=== PATIENT | male | born 1970 | race Caucasian/White ===

== ENCOUNTER → 2020-07-14 17:03 | Outpatient (CLI) | payer OTHER, SELFPAY ==
--- NOTE | 2020-07-14 | DI.MRI.S_ITS ---
PROCEDURE: MR ELBOW RT WO CON INDICATIONS: Other bursitis of elbow, right elbow TECHNIQUE: Noncontrast coronal proton density fast spin echo and T2 fast spin echo with fat saturation, axial and sagittal T1 spin echo and T2 fast spin echo with fat saturation through the elbow. COMPARISON: None. FINDINGS: Image quality: There is mild motion artifact. Lateral structures: The lateral ulnar collateral ligament and radial collateral ligament both appear intact. The overlying common extensor tendon also appears normal. Medial structures: The ulnar collateral ligament appears intact. The overlying common flexor tendon appears normal. The ulnar nerve appears normal in size and signal within the cubital tunnel. Anterior structures: The biceps and brachialis tendons both appear intact as they insert onto the proximal radius and ulna, respectively. No bicipitoradial bursal fluid. The median and radial neurovascular bundles appear normal; no focal muscle atrophy to suggest nerve impingement. Posterior structures: The triceps tendon demonstrates tendinopathy with moderate interstitial partial tearing distally. There is associated peritendinous edema and fluid distally along the triceps tendon. Soft tissue edema is demonstrated over the olecranon process with an associated small loculated fluid collection measuring approximately 0.7 x 0.4 x 1.5 cm consistent with bursitis. Bone and cartilage: There is bone marrow edema in the olecranon centered at the triceps tendon insertion. No fractures. No joint effusions. IMPRESSION: 1. Soft tissue edema overlying the olecranon with associated loculated fluid collection consistent with bursitis. 2. Peritendinitis and moderate interstitial partial partial tearing of the distal triceps tendon. 3. Bone marrow edema in the olecranon likely represents reactive changes secondary to bursitis. The differential includes bone contusions or infection although these are considered less likely. Recommend correlation with clinical history and exam. Dictated by: Chris Avila M.D. on 07/15/2020 at 12:06 Approved by: Chris Avila M.D. on 07/15/2020 at 12:48
== END ==
PROVIDERS: Family Provider Family Medicine; PCP Student in an Organized Health Care Education/Training Program; Referring Provider Student in an Organized Health Care Education/Training Program; Visit Provider Student in an Organized Health Care Education/Training Program
DX: M70.31 Other bursitis of elbow, right elbow (principal); M77.9 Enthesopathy, unspecified
CPT/HCPCS: 73221

== ENCOUNTER → 2021-06-03 08:05 | Outpatient (CLI) | payer OTHER, SELFPAY ==
[2021-06-03 11:35] LABS: COVID19 -Nasal RAPID Negative (Negative)
== END ==
PROVIDERS: PCP Student in an Organized Health Care Education/Training Program; Visit Provider Nurse Practitioner
DX: Z20.822 Contact with and (suspected) exposure to COVID-19 (principal); Z01.812 Encounter for preprocedural laboratory examination
CPT/HCPCS: 87635

== ENCOUNTER 2021-06-05 11:57 | Day surgery (SDC) | payer OTHER, SELFPAY ==
--- NOTE | 2021-06-05 12:14 | PM.HP.1 ---
History of Present Illness History of Present Illness Date Patient Seen: 06/05/21 Chief complaint: SDC Narrative: 51 Years Old Male seen today for consideration of a screening colonoscopy. There have been no lower GI symptoms suggesting disease such as change in bowel habits, bleeding, abdominal pain or anemia. There's been no family history of colon cancer or colon polyps. Overall health issues have been stable, including no major cardiac events for at least 6 weeks. Past Medical History: HYPERLIPIDEMIA MIGRAINE DEPRESSION, MAJOR, RECURRENT, managed by Dr. 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 - [employer] Education: Associates Degree Patient History Family & Social History Tobacco & Substance use: Smoking Status Smoker, status unknown Meds Home Medications and Allergies Home Medications Medication Instructions Recorded Confirmed Type buspirone 10 mg tablet 10 mg PO BID #60 tab 02/18/17 06/05/21 Rx erenumab-aooe 70 mg/mL 70 mg SUBCUT QMONTH #2 ml 02/19/19 06/05/21 Rx subcutaneous auto-injector (Aimovig Autoinjector 140 mg/2 Pack () dextroamphetamine-amphetamine 10 20 mg PO SEE INSTRUCTIONS tab 03/13/19 06/05/21 History mg tablet dextroamphetamine-amphetamine 10 30 mg PO SEE INSTRUCTIONS tab 03/13/19 06/05/21 History mg tablet bupropion HCl 150 mg tablet,12 hr 150 mg PO DAILY 09/11/19 06/05/21 History sustained-release (Wellbutrin SR) nadolol 20 mg tablet 20 mg PO DAILY 06/05/21 06/05/21 History Allergies Allergy/AdvReac Type Severity Reaction Status Date / Time Penicillins [PENICILLINS] Allergy Severe HIVES, Verified 06/05/21 12:13 TROUBLE BREATHING Review of Systems Review of Systems Narrative: See HPI. Exam Narrative Exam Narrative: GENERAL: Alert and oriented, appearing stated age and in no acute distress. HEENT: Head normocephalic/atraumatic. LUNGS: Clear to ausculation bilaterally, no wheezes, rhonchi or rales. CV: Normal S1 and S2 with regular rate and rhythm, no audible murmurs, rubs or gallops. ABDOMEN: Soft, non-tender, non-distended, no organomegaly. Positive bowel sounds. EXTREMITIES: No clubbing, cyanosis, or edema. NEURO: Cranial nerves II through XII grossly intact, no focal deficits. PSYCH: Alert and oriented x 3. SKIN: No concerning lesions. Assessment & Plan Assessment & Plan narrative: 1. Screening for colon cancer Plan for colonoscopy. The nature and character of the procedure as well as anticipated results were discussed. The possibility of not completing the procedure was also discussed. Possible complications including aspiration pneumonia, bleeding, perforation and reaction to medications either for sedation or preparation and missed lesions were discussed. Questions were answered and proceeding to the colonoscopy was elected. Informed consent signed. I sincerely appreciate the referral allowing me to participate in this patient's care. Please contact me with any questions or concerns.
--- NOTE | 2021-06-05 12:17 | PM.OP.ENDO ---
Operative Date/Time/Diagnoses Date of procedure: 06/05/21 Procedure Notes SCOAP/Timeout: 1:08 p.m. Procedure in detail: ENDOSCOPIST: Lizz Doe MD Sedation RN: Giovanni Osman RN Sedation start time: 3:09 p.m. Sedation end time: 1:40 p.m. PROCEDURE: Colonoscopy INDICATIONS: 1. Screening for colon cancer MEDICATION: Levsin 0.125 mg sublingual, incremental doses of Versed and fentanyl until appropriate level sedation achieved. ASA CLASS: 2 CECAL WITHDRAWAL TIME: 6 minutes COMPLICATIONS: None. EXTENT OF PROCEDURE: Cecum. QUALITY OF PREP: Good with portions of liquid stool. PROCEDURE: Prior to insertion of the colonoscope, a digital rectal examination was accomplished with circumferential palpation of the distal rectal mucosa without significant findings being noted. The high-definition colonoscope was passed into the rectum in the usual fashion and advanced over to the cecum without difficulty. The ileocecal valve, appendiceal stoma, and medial wall all could be inspected and no abnormalities were seen. ASCENDING COLON: As the colonoscope was withdrawn, care was taken to expose and inspect the haustral folds and no abnormalities were seen. HEPATIC FLEXURE: Normal, no polyps, diverticula or other abnormalities. TRANSVERSE COLON: Normal, no polyps, diverticula or other abnormalities. DESCENDING COLON: Normal, no polyps, diverticula or other abnormalities. SIGMOID COLON: Normal, no polyps, diverticula or other abnormalities. RECTUM: Normal. J maneuver was produced. There was no significant perianal disease. The J maneuver was broken. The remainder of the rectum was inspected and there was no external hemorrhoid disease. The scope was withdrawn. IMPRESSION: 1. Normal colonoscopy PLAN: 1. Repeat colonoscopy in 10 years. The possibility of a missed lesion including a malignancy has been discussed with the patient previously. Potential alarm symptoms have been discussed and should be reported immediately.
[2021-06-05 12:22] VITALS: BP 128/94; PULSE 74; RESP 16; TEMP 36.4; O2SAT 98; BMI 28.3
[2021-06-05] MEDS: LACTATED RINGERS 1,000 ML 200 ML IV (12:37)
[2021-06-05] MEDS: HYOSCYAMINE 0.125 MG TABLET PO (12:37)
[2021-06-05] MEDS: MIDAZOLAM 5 MG/5 ML VIAL IV (13:45)
[2021-06-05] MEDS: fentaNYL 250 MCG/5 ML INJ IV (13:45)
[2021-06-05 13:47] VITALS: BP 126/89; PULSE 72; RESP 14; TEMP 36.2; O2SAT 95
[2021-06-05 13:52] VITALS: BP 141/83; PULSE 63; RESP 16; O2SAT 98
[2021-06-05 13:57] VITALS: BP 114/80; PULSE 69; RESP 16; O2SAT 97
== END 2021-06-05 14:16 | disposition home or self-care (01) ==
PROVIDERS: PCP Student in an Organized Health Care Education/Training Program; Referring Provider Student in an Organized Health Care Education/Training Program; Visit Provider Student in an Organized Health Care Education/Training Program
PROC: 0DJD8ZZ Inspection of Lower Intestinal Tract, Via Natural or Artificial Opening Endoscopic (ICD-10-PCS; CPT 45378; principal; 2021-06-05 13:00)
DX: Z12.11 Encounter for screening for malignant neoplasm of colon (principal)
CPT/HCPCS: 45378; J2250; J3010

== ENCOUNTER → 2022-06-14 09:20 | Outpatient (CLI) | payer OTHER, SELFPAY ==
--- NOTE | 2022-06-14 09:23 | DI.RAD.S_ITS ---
PROCEDURE: XR HIP W PEL IF DONE LT 2V INDICATIONS: LOW BACK PAIN, LEFT HIP PAIN TECHNIQUE: AP pelvis with lateral view(s) of the left hip(s). COMPARISON: None. FINDINGS: Bones: No fractures or dislocations. There are minimal degenerative changes with a small osteophyte, no other significant abnormality. Pelvic ring appears intact. No suspicious bony lesions. Soft tissues: The visualized bowel gas pattern is normal. No suspicious soft tissue calcifications. IMPRESSION: Minimal degenerative changes, otherwise normal left hip. Dictated by: Ulysses Wood M.D. on 06/14/2022 at 11:09 Approved by: Ulysses Wood M.D. on 06/14/2022 at 11:10
--- NOTE | 2022-06-14 09:23 | DI.RAD.S_ITS ---
PROCEDURE: XR LUMBAR SPINE 2-3V INDICATIONS: LOW BACK PAIN, LEFT HIP PAIN TECHNIQUE: 3 views of the lumbar spine were acquired. COMPARISON: None. FINDINGS: Bones: 5 [id number] vertebrae are present. There is normal bony alignment. No vertebral body compression fractures. No suspicious bony lesions. There is facet arthrosis in the lower lumbar spine. Soft tissues: Overlying bowel gas pattern is normal. No suspicious soft tissue calcifications. IMPRESSION: 1. No acute abnormality of the lumbar spine. 2. No disc space narrowing. 3. Facet arthrosis in the lower lumbar spine. Dictated by: Ulysses Wood M.D. on 06/14/2022 at 11:06 Approved by: Ulysses Wood M.D. on 06/14/2022 at 11:07
== END ==
PROVIDERS: PCP Student in an Organized Health Care Education/Training Program; Referring Provider Internal Medicine; Visit Provider Internal Medicine
DX: M54.9 Dorsalgia, unspecified (principal); M25.552 Pain in left hip; M47.816 Spondylosis without myelopathy or radiculopathy, lumbar region
CPT/HCPCS: 72100; 73502